=== PATIENT | male | born 1975 | race Two or more races ===

== ENCOUNTER 2019-01-11 16:04 | Emergency (ER) | payer OTHER ==
[~2019-01-11] VITALS: Ht 170.2 cm; Wt 70.3 kg
--- NOTE | 2019-01-11 16:30 | NUR ---
patient came in due to chest pain s/p drinking alcohol. On room air, breathing evenly and unlabored. Connected to the monitor and pulse ox. kept comfortable will continue to monitor accordingly.
[2019-01-11 16:43] LABS: APPEARANCE,URINE Clear (CLEAR); BILIRUBIN,URINE Negative (NEGATIVE); BLOOD, URINE Negative Ery/uL (NEGATIVE); COLOR,URINE Yellow (YELLOW); KETONES,URINE Negative (NEGATIVE); LEUKOCYTE ESTERASE ,URINE Negative (NEGATIVE); NITRITE, URINE Negative (NEGATIVE); PROTEIN,URINE Negative (NEGATIVE); UGLUCOSE Negative (NEGATIVE); UROBILINOGEN,URINE 0.2 EU/dL (0.2)
[2019-01-11 16:47] LABS: BASOPHILS % (AUTO) 0.5 % (0.0-2.0); HEMATOCRIT 43 % (39-51); HEMOGLOBIN 14.7 g/dL (13.5-17.5); LYMPHOCYTES # (AUTO) 1.1 /CMM (0.8-4.8); MEAN CORPUSCULAR HGB CONC 34 g/dl (31.0-36.0); MEAN CORPUSCULAR VOLUME 96 fL (80-96); MONOCYTES # (AUTO) 0.3 /CMM (0.1-1.30); MONOCYTES % (AUTO) 4.7 % (2.0-12.0); NEUTROPHILS # (AUTO) 4.5 /CMM (1.8-8.9); NEUTROPHILS % (AUTO) 74.8 % (43.0-81.0); PLATELET COUNT (AUTO) 185 /CMM (150-450); RED BLOOD CELL COUNT(AUTO) 4.48 MIL/uL (4.5-6.0)
[2019-01-11 16:59] LABS: CALCIUM, SERUM 8.6 mg/dL (8.5-10.1); CARBON DIOXIDE 25 mmol/L (21-32); CHLORIDE 104 mmol/L (98-107); CREATININE 0.7 mg/dL (0.6-1.3); GLUCOSE 102 mg/dL (74-106); POTASSIUM 4.3 mmol/L (3.5-5.1); SODIUM SERUM 142 mmol/L (136-145); UREA NITROGEN, BLOOD 10 mg/dL (7-18)
[2019-01-11 17:05] LABS: ALANINE AMINOTRANSFERASE 39 U/L (12-78); ALCOHOL, BLOOD 270 mg/dL (0-0); ALKALINE PHOSPHATASE 118 U/L (46-116); ASPARTATE AMINOTRANSFERASE 47 U/L (15-37); BILIRUBIN,DIRECT 0.1 mg/dL (0.0-0.2); BILIRUBIN,TOTAL 0.3 mg/dL (0.2-1.0); SALICYLATE 3.1 mg/dL (2.8-20.0); TOTAL PROTEIN, SERUM 7.6 g/dL (6.4-8.2)
[2019-01-11 17:07] LABS: ACETAMINOPHEN < 10 ug/ml (10-30)
--- NOTE | 2019-01-11 17:56 | NUR ---
patient provided with food.
--- NOTE | 2019-01-11 19:15 | NUR ---
endorsed to Brady CASTREJON for josr.
--- NOTE | 2019-01-11 20:51 | NUR ---
Patient discharged to home in stable condition. Written and verbal after care instructions given. Patient verbalizes understanding of instruction. With stable gait able to ambulate.
[2019-01-11 20:55] VITALS: BP 128/73
== END 2019-01-11 20:57 | disposition home or self-care (01) ==
LOC: ER 16:06
DX: R07.89 Other chest pain (principal); F10.129 Alcohol abuse with intoxication, unspecified; Z60.2 Problems related to living alone; Y90.8 Blood alcohol level of 240 mg/100 ml or more
CPT/HCPCS: 36415; 70450; 71045; 72125; 80048; 80076; 80305; 80307; 80329; 81001; 83880; 84484 ×2; 85025; 93005; 99284; G0480; 81000-TC

== ENCOUNTER 2019-04-04 20:21 | Emergency (ER) | payer OTHER ==
[~2019-04-04] VITALS: Ht 167.6 cm; Wt 79.4 kg
--- NOTE | 2019-04-04 20:25 | NUR ---
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 PT ALSO C/O NAUSEA. PT STATES HE WAS RECENTLY SEEN AT [facility] FOR ALCOHOL WITHDRAWAL. PT DENIES SOB, HEADACHE, DIZZINESS. PT AAOX4. PT APPEARS RESTLESS. RESPIRATIONS EVEN AND UNLABORED. VITAL SIGNS STABLE. PLACED IN GOWN AND ON CONTINUOUS CAMPAIGN ANALYST. [employer] AT BEDSIDE. WILL CONTINUE TO MONITOR.
[2019-04-04] MEDS ORDERED: IV NS 0.9% 1,000 ML BAG IV ONE (20:30)
[2019-04-04] MEDS ORDERED: ONDANSETRON HCL/PF 4 MG/2 ML VIAL IVP ONE (20:30)
--- NOTE | 2019-04-04 20:30 | NUR ---
ER MD AT BEDSIDE FOR EVALUATION
[2019-04-04] MEDS ORDERED: ONDANSETRON HCL/PF 4 MG/2 ML VIAL ONE (20:34)
--- NOTE | 2019-04-04 20:50 | NUR ---
IV INITIATED L HAND 20G. LABS DRAWN FROM SITE. SOFTWARE QUALITY MANAGER AT BEDSIDE FOR COLLECTION.IV INTACT AND PATENT, PLACED ON SALINE LOCK.
[2019-04-04 20:55] LABS: BASOPHILS # (AUTO) 0.3 /CMM (0.0-0.2); BASOPHILS % (AUTO) 4.3 % (0.0-2.0); EOSINOPHILS % (AUTO) 4.9 % (0.0-6.0); HEMATOCRIT 37 % (39-51); HEMOGLOBIN 12.5 g/dL (13.5-17.5); LYMPHOCYTES # (AUTO) 1.5 /CMM (0.8-4.8); LYMPHOCYTES % (AUTO) 23.2 % (20.0-44.0); MEAN CORPUSCULAR HGB CONC 33 g/dl (31.0-36.0); MEAN CORPUSCULAR VOLUME 96 fL (80-96); MONOCYTES # (AUTO) 0.3 /CMM (0.1-1.30); MONOCYTES % (AUTO) 4.3 % (2.0-12.0); NEUTROPHILS # (AUTO) 4.1 /CMM (1.8-8.9); NEUTROPHILS % (AUTO) 63.3 % (43.0-81.0); PLATELET COUNT (AUTO) 432 /CMM (150-450); WHITE BLOOD COUNT (AUTO) 6.5 K/uL (4.3-11.0)
[2019-04-04 21:01] LABS: CALCIUM, SERUM 8.1 mg/dL (8.5-10.1); CARBON DIOXIDE 25 mmol/L (21-32); CHLORIDE 108 mmol/L (98-107); CREATININE 0.8 mg/dL (0.6-1.3); GLUCOSE 83 mg/dL (74-106); POTASSIUM 3.5 mmol/L (3.5-5.1); SODIUM SERUM 146 mmol/L (136-145); UREA NITROGEN, BLOOD 6 mg/dL (7-18)
[2019-04-04 21:13] LABS: ALANINE AMINOTRANSFERASE 30 U/L (12-78); ALBUMIN 3.4 g/dL (3.4-5.0); ALKALINE PHOSPHATASE 90 U/L (46-116); ASPARTATE AMINOTRANSFERASE 27 U/L (15-37); B-TYPE NATRIURETIC PEPTIDE 13 PG/ML (0-125); BILIRUBIN,DIRECT 0.1 mg/dL (0.0-0.2); BILIRUBIN,TOTAL 0.3 mg/dL (0.2-1.0); TOTAL PROTEIN, SERUM 6.5 g/dL (6.4-8.2)
--- NOTE | 2019-04-04 21:41 | NUR ---
Patient medically cleared for booking. Written and verbal after care instructions given. Patient verbalizes understanding of instruction.IV removed. Catheter intact and site benign. Pressure and 4x4 applied to site. No bleeding noted. pt ambulatory with a steady gait
[2019-04-04 21:42] VITALS: BP 123/80
== END 2019-04-04 21:43 ==
LOC: ER 20:23
DX: R07.89 Other chest pain (principal); F10.229 Alcohol dependence with intoxication, unspecified; I10 Essential (primary) hypertension; F17.200 Nicotine dependence, unspecified, uncomplicated; Y90.8 Blood alcohol level of 240 mg/100 ml or more; Z02.89 Encounter for other administrative examinations; Z60.2 Problems related to living alone
CPT/HCPCS: 36415; 71045; 80048; 80076; 80307; 83880; 84484; 85025; 85730; 93005; 96374; 99284; 99406; J2405; J7030; G0480

== ENCOUNTER 2019-06-03 01:45 | Emergency (ER) | payer OTHER ==
[~2019-06-03] VITALS: Ht 167.6 cm; Wt 72.6 kg
--- NOTE | 2019-06-03 01:50 | NUR ---
TO BED 12 [facility]IB [facility] C/O ALTERED, HEAVY ETOH SMELL. PT AAOX2 NO ACUTE DISTRESS NOTED, RESP EVEN AND UNLABORED. PLACE PT ON CARDIAC MONITORING, CONTINUOUS POX. ER MD AT BEDSIDE TO EVAL PT. WILL CARRY OUT ORDERS.
--- NOTE | 2019-06-03 02:29 | NUR ---
PT TRANSPORTED TO RADIOLOGY FOR CT HEAD.
--- NOTE | 2019-06-03 02:40 | NUR ---
PT BACK FROM RADIOLOGY. PENDING CT RESULT.
[2019-06-03] MEDS ORDERED: IBUPROFEN 600 MG TABLET PO ONE ×2 (04:10→05:30)
--- NOTE | 2019-06-03 04:52 | NUR ---
PT AMBULATORY TO THE BATHROOM WITH STEADY GAIT NOTED. PT AAOX4 BASIL CUTE DISTRESS NOTED, RESP EVEN AND UNLABORED. PT REQUESTING PAIN MEDS.
[2019-06-03 06:27] VITALS: BP 112/73
== END 2019-06-03 06:27 | disposition home or self-care (01) ==
LOC: ER 01:45
DX: F10.129 Alcohol abuse with intoxication, unspecified (principal); F17.200 Nicotine dependence, unspecified, uncomplicated; Y90.9 Presence of alcohol in blood, level not specified; Z60.2 Problems related to living alone
CPT/HCPCS: 70450-TC

== ENCOUNTER 2019-06-24 01:39 | Emergency (ER) | payer OTHER ==
[~2019-06-24] VITALS: Ht 170.2 cm; Wt 76.2 kg
--- NOTE | 2019-06-24 01:40 | NUR ---
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
[2019-06-24] MEDS ORDERED: OLANZAPINE 10 MG VIAL IM ONE ×2 (02:11→02:30)
[2019-06-24 02:33] LABS: BASOPHILS % (AUTO) 0.4 % (0.0-2.0); EOSINOPHILS % (AUTO) 1.5 % (0.0-6.0); HEMATOCRIT 34 % (39-51); HEMOGLOBIN 10.9 g/dL (13.5-17.5); LYMPHOCYTES # (AUTO) 1.2 /CMM (0.8-4.8); LYMPHOCYTES % (AUTO) 21.6 % (20.0-44.0); MEAN CORPUSCULAR HGB CONC 32 g/dl (31.0-36.0); MEAN CORPUSCULAR VOLUME 89 fL (80-96); MONOCYTES # (AUTO) 0.3 /CMM (0.1-1.30); MONOCYTES % (AUTO) 5.6 % (2.0-12.0); NEUTROPHILS % (AUTO) 70.9 % (43.0-81.0); PLATELET COUNT (AUTO) 259 /CMM (150-450); RED BLOOD CELL COUNT(AUTO) 3.86 MIL/uL (4.5-6.0); WHITE BLOOD COUNT (AUTO) 5.6 K/uL (4.3-11.0)
[2019-06-24 02:48] LABS: ALBUMIN 3.6 g/dL (3.4-5.0); BILIRUBIN,DIRECT 0.1 mg/dL (0.0-0.2); BILIRUBIN,TOTAL 0.1 mg/dL (0.2-1.0); CALCIUM, SERUM 8.8 mg/dL (8.5-10.1); CREATININE 0.8 mg/dL (0.6-1.3); POTASSIUM 3.8 mmol/L (3.5-5.1)
[2019-06-24 02:49] LABS: SALICYLATE 1.8 mg/dL (2.8-20.0)
--- NOTE | 2019-06-24 02:49 | NUR ---
PT REFUSED TO GIVE URINE SAMPLE, PER DR MITCHELL, PT CAN REFUSE. MD DOES NOT NEED URINE AT THIS TIME\
--- NOTE | 2019-06-24 03:05 | NUR ---
Patient discharged in custody in stable condition. Written and verbal after care instructions given. Patient verbalizes understanding of instruction.
[2019-06-24 03:06] VITALS: BP 127/72
== END 2019-06-24 03:07 ==
LOC: ER 01:40
DX: F10.129 Alcohol abuse with intoxication, unspecified (principal); F17.200 Nicotine dependence, unspecified, uncomplicated; Z60.2 Problems related to living alone; Y90.8 Blood alcohol level of 240 mg/100 ml or more
CPT/HCPCS: 36415; 80048; 80076; 80307; 80329; 85025; 96372; 99283; G0480; J3490

== ENCOUNTER 2021-10-03 03:32 | Emergency (ER) | payer OTHER ==
[~2021-10-03] VITALS: Ht 170.2 cm; Wt 77.1 kg
--- NOTE | 2021-10-03 03:35 | NUR ---
PT СЕРГЕЙ 62 FROM HOME FOR C/O CHRONIC BACK PAIN, +ETOH. PT A/OX3. TOLERATING R/A WELL WITH NO SOB. CONNECTED PT TO POX AND MONITOR. SAFETY MEASURES IN PLACE
--- NOTE | 2021-10-03 03:49 | NUR ---
LAW CARLTON AT PT'S BEDSIDE
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
[2021-10-03] MEDS ORDERED: KETOROLAC TROMETHAMINE INJ 30 MG/ML VIAL IM ONE (04:30)
[2021-10-03] MEDS ORDERED: KETOROLAC TROMETHAMINE INJ 30 MG/ML VIAL ONE ×2 (04:31→04:44)
--- NOTE | 2021-10-03 04:40 | NUR ---
PT TAKEN TO CT VIA MELVIN
--- NOTE | 2021-10-03 07:05 | NUR ---
Patient discharged to home in stable condition. Written and verbal after care instructions given. Patient verbalizes understanding of instruction.
[2021-10-03] MEDS ORDERED: ACETAMINOPHEN ES 500 MG TABLET ONE (07:07)
[2021-10-03] MEDS ORDERED: ACETAMINOPHEN ES 500 MG TABLET PO ONE (07:30)
[2021-10-03 08:36] VITALS: BP 105/64
--- NOTE | 2021-10-03 08:36 | NUR ---
AMBULATED TO TO WAIT FOR DAD,STEADY GAIT
== END 2021-10-03 08:37 | disposition home or self-care (01) ==
LOC: ER 03:34
DX: F10.129 Alcohol abuse with intoxication, unspecified (principal); M54.6 Pain in thoracic spine; M54.2 Cervicalgia; I10 Essential (primary) hypertension; G89.29 Other chronic pain; V49.69XA Unspecified car occupant injured in collision with other motor vehicles in traffic accident, initial encounter; Y93.89 Activity, other specified; Y92.413 State road as the place of occurrence of the external cause; Y99.8 Other external cause status; Y90.9 Presence of alcohol in blood, level not specified
CPT/HCPCS: 72125; 72128; 72131; 96372; 99284; J1885 ×2

== ENCOUNTER 2021-10-12 19:20 | Emergency (ER) | payer OTHER ==
[~2021-10-12] VITALS: Ht 170.2 cm; Wt 77.1 kg
--- NOTE | 2021-10-12 19:40 | NUR ---
PT [facility]IBRA C/O ETOH FROM HOME. PT A/O X 2-3, RR EVEN, NO SOB NOTED. PT TO ER BED 11. PT CONNECTED TO MONITORS.
[2021-10-12] MEDS ORDERED: ONDANSETRON HCL/PF 4 MG/2 ML VIAL ONE (19:49)
[2021-10-12] MEDS ORDERED: ONDANSETRON HCL/PF 4 MG/2 ML VIAL IVP ONE (20:00)
[2021-10-12] MEDS ORDERED: IV NS 0.9% 1,000 ML BAG IV ONE (20:00)
[2021-10-13] VITALS: BP 124/70
--- NOTE | 2021-10-13 01:57 | NUR ---
MIRIAM (EX-GF) [phone] ORDERED UBER WITH ETA OF 13 MINUTES
--- NOTE | 2021-10-13 02:00 | NUR ---
PT noted ambulatory with a steady gait
--- NOTE | 2021-10-13 02:40 | NUR ---
Patient discharged to home in stable condition. Written and verbal after care instructions given. Patient verbalizes understanding of instruction. IV removed. Catheter intact and site benign. Pressure and 4x4 applied to site. No bleeding noted.
== END 2021-10-13 02:59 | disposition home or self-care (01) ==
LOC: ER 19:29
DX: F10.129 Alcohol abuse with intoxication, unspecified (principal); I10 Essential (primary) hypertension; Z87.39 Personal history of other diseases of the musculoskeletal system and connective tissue; Y90.9 Presence of alcohol in blood, level not specified
CPT/HCPCS: 82962; 96361; 96374; 99284; J2405; J7030

== ENCOUNTER 2022-05-01 18:41 | Emergency (ER) | payer OTHER ==
[~2022-05-01] VITALS: Ht 165.1 cm; Wt 68.0 kg
--- NOTE | 2022-05-01 19:45 | NUR ---
BIBRA 102 for ETOH, found vodka next to him, BS=90MG/DL. PLACED ON BED, NOT RESPONDING TO VERBAL STIMULI- RESPONDING TO DEEP PAINFUL STIMULI, BREATHING EVEN AND UNLABORED SATURATING AT 97%RA
[2022-05-01] MEDS ORDERED: BENZOIN COMPOUND TINCT 60 ML BOTTLE ONE (19:59)
[2022-05-01] MEDS ORDERED: IV NS 0.9% 1,000 ML BAG IV ONE (20:00)
--- NOTE | 2022-05-01 20:14 | NUR ---
BLOOD DRAWN, URINE SAMPLE AND SENT TO LAB
--- NOTE | 2022-05-01 20:15 | NUR ---
PATIENT TAKEN TO CT VIA MELVIN
[2022-05-01 20:17] LABS: BASOPHILS % (AUTO) 0.6 % (0.0-2.0); EOSINOPHILS % (AUTO) 0.3 % (0.0-6.0); HEMATOCRIT 41 % (39-51); HEMOGLOBIN 13.2 g/dL (13.5-17.5); LYMPHOCYTES # (AUTO) 1.6 K/uL (0.8-4.8); LYMPHOCYTES % (AUTO) 33.1 % (20.0-44.0); MEAN CORPUSCULAR HGB CONC 33 g/dl (31.0-36.0); MEAN CORPUSCULAR VOLUME 97 fL (80-96); MONOCYTES # (AUTO) 0.4 K/uL (0.1-1.30); MONOCYTES % (AUTO) 7.7 % (2.0-12.0); NEUTROPHILS # (AUTO) 2.9 K/uL (1.8-8.9); NEUTROPHILS % (AUTO) 58.3 % (43.0-81.0); PLATELET COUNT (AUTO) 297 K/uL (150-450); RED BLOOD CELL COUNT(AUTO) 4.17 MIL/uL (4.5-6.0)
[2022-05-01 20:36] LABS: BILIRUBIN,URINE NEGATIVE (NEGATIVE); COLOR,URINE YELLOW (YELLOW); LEUKOCYTE ESTERASE ,URINE NEGATIVE (NEGATIVE); NITRITE, URINE NEGATIVE (NEGATIVE); PROTEIN,URINE NEGATIVE (NEGATIVE); UGLUCOSE NEGATIVE (NEGATIVE); UROBILINOGEN,URINE 0.2 EU/dL (0.2)
[2022-05-01 20:38] LABS: LIPASE 239 U/L (73-393)
[2022-05-01 20:42] LABS: CREATINE KINASE, TOTAL 323 U/L (39-308)
[2022-05-01 20:50] LABS: CALCIUM, SERUM 8.6 mg/dL (8.5-10.1); CARBON DIOXIDE 27 mmol/L (21-32); CHLORIDE 109 mmol/L (98-107); CREATININE 0.6 mg/dL (0.6-1.3); GLUCOSE 111 mg/dL (74-106); SODIUM SERUM 148 mmol/L (136-145); UREA NITROGEN, BLOOD 4 mg/dL (7-18)
[2022-05-01 20:56] LABS: ALANINE AMINOTRANSFERASE 36 U/L (12-78); ALBUMIN 3.8 g/dL (3.4-5.0); ALCOHOL, BLOOD 592 mg/dL (0-0); ALKALINE PHOSPHATASE 120 U/L (46-116); ASPARTATE AMINOTRANSFERASE 42 U/L (15-37); BILIRUBIN,DIRECT 0.1 mg/dL (0.0-0.2); BILIRUBIN,TOTAL 0.1 mg/dL (0.2-1.0); TOTAL PROTEIN, SERUM 7.9 g/dL (6.4-8.2)
[2022-05-01 21:19] LABS: ACETAMINOPHEN < 2 ug/ml (10-30)
--- NOTE | 2022-05-01 23:45 | NUR ---
GENERAL MAGISTRATE AT PT'S BEDSIDE
--- NOTE | 2022-05-02 04:17 | NUR ---
PATIENT IS A, OX4. AMBULATORY WITH STEADY GAITS. PO INTAKE TOLERATED WELL. DENIED SI/HI. REPORTED FEELING WELL AND WILLING TO LEAVE. MADE AWARE.
[2022-05-02 05:19] VITALS: BP 135/88
--- NOTE | 2022-05-02 05:19 | NUR ---
Patient discharged to home in stable condition. Written and verbal after care instructions given. Patient verbalizes understanding of instruction. IV removed. Catheter intact and site benign. Pressure and 4x4 applied to site. No bleeding noted. PT ambulatory with a steady gait
== END 2022-05-02 05:21 | disposition home or self-care (01) ==
LOC: ER 18:46
DX: F10.129 Alcohol abuse with intoxication, unspecified (principal); R41.82 Altered mental status, unspecified; E86.0 Dehydration; E87.8 Other disorders of electrolyte and fluid balance, not elsewhere classified; D50.9 Iron deficiency anemia, unspecified; R74.8 Abnormal levels of other serum enzymes; I10 Essential (primary) hypertension; G89.29 Other chronic pain; Y90.9 Presence of alcohol in blood, level not specified
CPT/HCPCS: 99285; 96360; 93005 ×2; 71045; 72125; 70450; 85025; 80048; 82550; 87040 ×2; 83605; 83690; 80076; 81003; 36415; 84484 ×2; 85730; 82553; 80143; 80320; 80307; J7030; G0480

== ENCOUNTER 2024-12-16 12:05 | Emergency (ER) | payer OTHER ==
[~2024-12-16] VITALS: Ht 170.2 cm; Wt 65.8 kg
[2024-12-16] MEDS: IV NS 0.9% 1,000 ML BAG IV ONE (14:00)
[2024-12-16 14:07] LABS: BASOPHILS % (AUTO) 0.6 % (0.0-2.0); EOSINOPHILS # (AUTO) 0.1 K/uL (0.0-0.7); EOSINOPHILS % (AUTO) 0.7 % (0.0-6.0); HEMATOCRIT 42 % (39-51); HEMOGLOBIN 13.3 g/dL (13.5-17.5); LYMPHOCYTES # (AUTO) 1.7 K/uL (0.8-4.8); LYMPHOCYTES % (AUTO) 21.8 % (20.0-44.0); MEAN CORPUSCULAR HEMOGLOBIN 29 PG (26.0-33.0); MEAN CORPUSCULAR HGB CONC 32 g/dl (31.0-36.0); MEAN CORPUSCULAR VOLUME 92 fL (80-96); MONOCYTES # (AUTO) 0.6 K/uL (0.1-1.30); MONOCYTES % (AUTO) 7.8 % (2.0-12.0); NEUTROPHILS # (AUTO) 5.3 K/uL (1.8-8.9); NEUTROPHILS % (AUTO) 69.1 % (43.0-81.0); PLATELET COUNT (AUTO) 119 K/uL (150-450); RED BLOOD CELL COUNT(AUTO) 4.55 MIL/uL (4.5-6.0); RED CELL DISTRIBUTION WIDTH 18.8 % (11.5-15.0); WHITE BLOOD COUNT (AUTO) 7.6 K/uL (4.3-11.0)
[2024-12-16 14:12] LABS: CALCIUM, SERUM 8.4 mg/dL (8.5-10.1); CREATININE 0.5 mg/dL (0.6-1.3); POTASSIUM 3.5 mmol/L (3.5-5.1)
[2024-12-16 14:18] LABS: ALBUMIN 3.4 g/dL (3.4-5.0); BILIRUBIN,DIRECT 0.1 mg/dL (0.0-0.2); BILIRUBIN,TOTAL 0.3 mg/dL (0.2-1.0); TOTAL PROTEIN, SERUM 7.9 g/dL (6.4-8.2)
[2024-12-16 18:38] VITALS: BP 131/93; TEMP 98.2; O2SAT 97
== END 2024-12-16 18:38 | disposition home or self-care (01) ==
LOC: ER 12:10
DX: F10.129 Alcohol abuse with intoxication, unspecified (principal); I10 Essential (primary) hypertension; Y90.8 Blood alcohol level of 240 mg/100 ml or more
CPT/HCPCS: 99283; 96360; 85025; 80048; 80076; 36415; 80320; J7030; G0480